=== PATIENT | female | born 1935 | race Caucasian/White ===

== ENCOUNTER 2024-04-09 14:35 | Outpatient (REF) | payer MEDICAID, SELFPAY ==
--- NOTE | ~2024-04-09 | XR_ITS ---
EXAMINATION: XR SHOULDER, RIGHT CLINICAL INFORMATION: Pain and limited range of motion COMPARISON: None available. TECHNIQUE: AP external rotation, Grashey, scapular Y, and axillary views of the right shoulder. FINDINGS: Diffuse demineralization. Chondrocalcinosis. No fracture or dislocation. Visualized lung is clear. XR/XR shoulder RT min 2V IMPRESSION: Right shoulder chondrocalcinosis. No acute bony pathology. Electronically signed by: Elisa Tang MD 04/09/2024 05:01 PM EDT RP
== END 2024-04-09 14:36 | disposition home or self-care (01) ==
LOC: HO.HHCX 14:35
PROVIDERS: Visit Provider General Practice
DX: M25.511 Pain in right shoulder (principal)
CPT/HCPCS: 73030

== ENCOUNTER 2025-01-23 10:02 | Outpatient (REF) | payer MEDICAID, SELFPAY ==
--- OUTSIDE RECORDS SUMMARY | 2025-01-23 10:34 | XMS_ITS | Clinical Summary ---
Author Organization [employer] Address [address] [place] [address] Care Team Providers Care Stable Hand Name Role Phone Nidia Aguila MD Primary Care Provider [phone] Allergies No known active allergies Medications camphor-menthol (Sarna) lotion apply 2 times a day on affected areas 021 Active pramoxine-calamin e (Calahist) 1-8 % lotion apply over affected areas twice a day 022 Active zinc oxide (Desitin) 40 % paste apply over area of rash twice a day 022 Active atorvastatin (Lipitor) 20 MG tablet TAKE 1 TABLET BY MOUTH ONCE DAILY IN THE MORNING 90 tablet 3 024 Active metoprolol succinate XL (Toprol-XL) 50 MG 24 hr tabletIndications :Primary hypertension TAKE 1 AND 1/2 TABLETS BY MOUTH EVERY DAY 135 tablet 3 024 Active colchicine 0.6 MG tabletIndications :Pseudogout of right shoulder TAKE 1 TABLET BY MOUTH TWICE DAILY 60 tablet 2 025 Active hydroCHLOROthiazi de 12.5 MG tablet TAKE 1 TABLET BY MOUTH EVERY DAY IN THE MORNING 90 tablet 3 025 Active amitriptyline (Elavil) 10 MG tabletIndications :Postherpetic neuralgia TAKE 1 TABLET BY MOUTH AT BEDTIME 90 tablet 1 025 Active levothyroxine (Synthroid, Levoxyl) 25 MCG tabletIndications :Acquired hypothyroidism TAKE 1 TABLET BY MOUTH EVERY DAY 90 tablet 3 025 Active aspirin (Aspirin Low Dose) 81 MG chewable tablet CHEW AND SWALLOW 1 TABLET BY MOUTH EVERY DAY IN THE MORNING 90 tablet 3 025 Active losartan (Cozaar) 100 MG tablet TAKE 1 TABLET BY MOUTH DAILY IN THE MORNING 90 tablet 3 025 Active clotrimazole (Lotrimin) 1 % cream Apply topically 2 times daily for 28 days. vagina 30 g 5 025 2024 Active clotrimazole (Lotrimin) 1 % cream Apply topically every 12 (twelve) hours. 021 2024 Discontinued Triamcinolone Acetonide 0.025 % lotion Apply topically every 12 (twelve) hours. 022 2024 Discontinued NIFEdipine XL (Procardia XL) 60 MG 24 hr tablet TAKE 1 TABLET BY MOUTH EVERY DAY AT 5 IN THE EVENING 023 2024 Discontinued(T herapy completed) triamcinolone (Kenalog) 0.1 % cream Apply topically if needed in the morning and at bedtime for rash or irritation (face) for up to 10 days. 30 g 2 025 2024 Active Problems Problem Noted Date Diagnosed Date Acute pain of right shoulder 04/13/2024 Assessment & Plan (01/07/2025 3:00 PM EDT): R shoulder is painful, cannot lift above 90 degrees. She had surgery for reported dislocation in 2022. 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 Continue with a low sodium diet and regular exercise as tolerated. For BP < or = to 139/89 (or 129/79 for diabetic patients) continue current medication regimen and follow up with PCP in 8 weeks. For BP > or = to 140/90 (or 130/80 for diabetic patients) increase Hydrochlorothiazide to 25 mg once a day Follow up with the Nurse for a second blood pressure check in 2-4 weeks if BP 140-150/90+ (or 130-150/80+ for diabetic patients). Refer to [facility] for BP >150/90+. If second Nurse visit is needed: For BP < or = to 139/89 (or 129/79 for diabetic patients) continue current medication regimen and follow up with the PCP in 8 weeks. For BP > or = to 140/90 (or 130/80 for diabetic patients) Start Amlodipine 2.5mg Follow up with the PCP in 8 weeks. Assessment & Plan (04/13/2024 6:47 PM EDT): Continue hydrochlorothiazide 12.5mg, Losartan and Metoprolol Assessment & Plan (10/17/2022 6:47 AM EDT): Stop Nifedipine due to side effects Start hydrochlorothiazide 12.5mg in the morning Continue Losartan and Metoprolol Resolved Problems Problem Noted Date Diagnosed Date Resolved Date Abnormal finding of blood ch emistry, unspecified 10/17/2022 04/13/2024 Encounter for annual physical exam 10/13/2022 01/04/2025 Assessment & Plan (10/17/2022 6:47 AM EDT): Labs ordered today Encounters Date Type Department Care Team Description 01/08/2025 Telephone [facility] [address] [place] [phone] Nidia Aguila MD VNA services 01/04/2025 9:40 AM EDT Office Visit [facility] [address] [place] [address], [place] [phone] Nidia Aguila MD Primary hypertension (Primary Dx); Muscle ache; Adverse effect of statin; Acquired hypothyroidism; History of stroke; Wheelchair dependent; Postherpetic neuralgia; Acute pain of right shoulder 01/04/2025 Travel 12/04/2024 Travel 11/28/2024 Refill [facility] [address] [place] [phone] Lexy Lebron DO 11/27/2024 Telephone [facility] [address] [place] [phone] Nidia Aguila MD Durable Medical Equipment 11/21/2024 Travel 11/10/2024 Refill [facility] [address] [place] [address] Nidia Aguila MD Acquired hypothyroidism 11/04/2024 Refill [facility] [address] [place] [address] [phone] Nidia Aguila MD Postherpetic neuralgia from Last 3 Months Immunizations Immunization Administration Dates Next Due Influenza High-dose Quadrivalent Preservative Fr ee 03/24/2022 Moderna Covid-19 Vaccine 12+ 10/27/2021,09/30/19 22 Pneumococcal Conjugate PCV 13 05/28/2021 Tdap 03/24/2022 Social History Tobacco Use Types Packs/Day Years Used Date Smoking Tobacco: Never Smokeless Tobacco: Never Tobacco Cessation:Counseling Given: Not Answered Alcohol Use Standard Drinks/Week Comments Never 0 (1 standard drink = 0.6 oz pur e alcohol) Depression Answer Date Recorded Patient Health Questionnaire-9 Score 3 01/06/2025 Patient Health Questionnaire-9 Score 3 01/06/2025 Last PHQ-9: Questionnaire Data Not on file 0 01/06/2025 Housing Stability Answer Date Recorded What is your housing situation today? I have jaxson long 03/26/[address] you li ve. Do you have problems with any of the following? None of the above 03/26/2024 Food Insecurity Answer Date Recorded Within the past 12 months, y ou worried that your food would run out before you got money to buy more: Never True 03/26/2024 Within the past 12 months,th e food you bought just didn't last and you didn't have enough money to get more: Never True 01/2024 Transportation Answer Date Recorded In the past 12 months, has l ack of transportation kept you from medical appts, meetings, work or from getting things needed for daily living? No 03/26/2024 Utilities Answer Date Recorded In the past 12 months, has t he electric, gas, oil or water company threatened to shut off services in your home? No 03/26/2024 Depression Answer Date Recorded Patient Health Questionnaire-2 Score 0 01/06/2025 Internet Access Answer Date Recorded Internet Access Q1 Yes 03/26/2024 Internet Access Q2 Not on file 03/26/2024 Comments Unknown Sex and Gender Information Value Date Recorded Sex Assigned at Female 04/18/2022 10:39 AM EDT Legal Sex Female 10:39 AM EDT Gender Identity Female 04/18/2022 10:39 AM EDT Sexual Orientation Straight 04/18/2022 10 :39 AM EDT Last Filed Vital Signs Vital Sign Reading Time Taken Comments Blood Pressure 161/69 01/04/2025 9:46 AM EDT Pulse 62 01/04/2025 9:46 AM EDT Temperature 35.7 C (96.2 F) 01/04/2025 9:46 AM EDT Respiratory Rate 12 01/04/2025 9:46 AM EDT Oxygen Saturation 98% 04/09/2024 2:04 PM EDT Inhaled Oxygen Concentration - - Weight 68 kg (150 lb) 04/09/2024 2:04 PM EDT Height 170.2 cm (5' 7 ) 01/04/2025 9:46 AM EDT Body Mass Index 23.49 04/09/2024 2:04 PM EDT Plan of Treatment Upcoming Encounters Date Type Department Care Team (Late st Contact Info) Description 02/03/2025 10:30 AM EDT Clinical Support [facility] [address] [place] [address] Health Maintenance Due Date Last Done Comments Alcohol/Substance Use Screening 1947 Zoster Vaccines (1 of 2) 1987 RSV Patients and Patients Aged 60 years or older (1 - 1-dose 75+ series) 2012 Pneumococcal Vaccine: 50+ Years (2 of 2 - PPSV23) 05/28/2022 05/28/2021 COVID-19 Vaccine (3 - 2023-2 5 season) 2024 10/27/2021, 09/29/2021 Influenza Vaccine (#1) 2025 03/24/2022 SDOH Screening 03/26/2025 03/26/2024 Tobacco Screening 01/04/2026 01/04/2025 Depression Screening 01/06/2026 01/06/2025, 01/06/2025 Lipid Panel 10/14/2027 10/13/2022, 03/31/2021 DTaP/Tdap/Td Vaccines (2 - T d or Tdap) 03/24/2032 03/24/2022 HIB Vaccines Aged Out No longer eligi ble based on patient's age to complete this topic HPV Vaccines Aged Out No longer eligi ble based on patient's age to complete this topic Hepatitis A Vaccines Aged Out No long er eligible based on patient's age to complete this topic Hepatitis B Vaccines Aged Out No long er eligible based on patient's age to complete this topic IPV Vaccines Aged Out No longer eligi ble based on patient's age to complete this topic Meningococcal B Vaccine Aged Out No l onger eligible based on patient's age to complete this topic Meningococcal Vaccine Aged Out No ambrose jonathan eligible based on patient's age to complete this topic RSV under 20 months Aged Out No longe r eligible based on patient's age to complete this topic Rotavirus Vaccines Aged Out No longer eligible based on patient's age to complete this topic Procedures Procedure Name Priority Date/Time Associated Diagnosis Comments LIPID PANEL, STANDARD Routine 10/13/2022 11:43 AM EDT Primary hypertension from Last 3 Months or Most Recently Relevant to Health Maintenance Results * Lipid Panel, Standard (10/13/2022 11:43 AM EDT) Cholesterol, Total 155 <200 mg/dL [facility] HDL Cholesterol 60 > OR = 50 mg/dL [facility] Triglycerides 126 <150 mg/dL [facility] [place] [email or web address] LDL Cholesterol 74 mg/dL (calc) [facility] [place] [email or web address] Comment: Reference range: <100 Desirable range <100 mg/dL for primary prevention; <70 mg/dL for patients with CHD or diabetic patients with > or = 2 CHD risk factors. LDL-C is now calculated using the Genna calculation, which is a validated novel method providing better accuracy than the Friedewald equation in the estimation of LDL-C. Kai SS et al. ANUJA. 2013;310(19): 7275-6202 (http://education.[employer]/faq/BKE814) Chol/HDLC Ratio 2.6 <5.0 (calc) [facility] [place] [email or web address] Non-HDL Cholesterol 95 <130 mg/dL (calc) [facility] [place] [email or web address] Comment: For patients with diabetes plus 1 major ASCVD risk factor, treating to a non-HDL-C goal of <100 mg/dL (LDL-C of <70 mg/dL) is considered a therapeutic option. Blood Venous blood specimen / Unknown 10/13/2022 11:43 AM EDT 10/13/2022 11:44 AM EDT Narrative [facility] - 10/14/2022 4:47 AM EDT FASTING:NO FASTING: NO Nidia Aguila MD LAB BLOOD ORDERABLES Final Res ult [facility] [address], [place] [address] [facility] [place] [email or web address] [address] [place] [phone] from Last 3 Months or Most Recently Relevant to Health Maintenance Insurance [facility] STANDARD MEDICARE Care Teams Stable Hand Relationship Specialty Start Date End Date Nidia Aguila MD [address] [place] [phone] PCP - General Family Medicine 09/09/22
[2025-01-23 11:31] LABS: MANUAL DIFF FLAG NO
[2025-01-23 11:44] LABS: Hematocrit 35.9 % (37.0-47.0); Hemoglobin 11.4 g/dl (12.0-16.0); Imm Gran Abs Auto 0.03 X10*3/uL (0.00-0.03); Imm Gran Pct Auto 0.4 % (0.0-0.4); Lymphocytes Absolute Auto 2.1 X10*3/uL (1.2-4.9); Mean Corpuscular HGB Conc 31.8 g/dl (31.0-35.0); Mean Corpuscular Hemoglobin 28.4 pg (27.0-33.0); Mean Corpuscular Volume 89.3 fL (80.0-98.0); NRBC Abs Auto 0.000 X10*3/uL (0.0-0.012); NRBC Pct Auto 0.0 /100WBC (0.0-0.2); Platelet Count 246 X10*3/uL (160-400); Red Blood Count 4.02 X10*6/uL (4.20-5.50); White Blood Count 7.2 X10*3/uL (4.8-10.8)
[2025-01-23 11:50] LABS: Alanine Aminotransferase 17 U/L (0-31); Albumin Level 4.1 g/dL (3.5-5.0); Alkaline Phosphatase 92 U/L (39-117); Anion Gap 12 (12-20); Aspartate Amino Transferase 22 U/L (5-31); Blood Urea Nitrogen 22 mg/dL (9-16); Calcium 9.5 mg/dL (8.4-10.2); Carbon Dioxide 27 mmol/L (22-29); Chloride 107 mmol/L (96-108); Cholesterol 166 mg/dL (<200); Estimated Glomerular Filt Rate 55; HDL Cholesterol 49 mg/dL (>40); Potassium 4.3 mmol/L (3.3-5.1); Sodium 142 mmol/L (135-145); Total Protein 7.5 g/dL (6.5-8.0); Triglycerides 210 mg/dL (<150)
[2025-01-27 21:24] LABS: CK-BB None Detected (None Detected); CK-MB 0 % (<5); CK-MM 100 % (95-100); Creatine Kinase,Total,Serum 41 U/L (16-215)
== END 2025-01-23 10:03 | disposition home or self-care (01) ==
LOC: HO.HHCL 10:02
PROVIDERS: PCP General Practice; Visit Provider General Practice
DX: I10 Essential (primary) hypertension (principal); M79.10 Myalgia, unspecified site; T46.6X5A Adverse effect of antihyperlipidemic and antiarteriosclerotic drugs, initial encounter
CPT/HCPCS: 36415; 80053; 80061; 82552; 85025